=== PATIENT | female | born 1940 | race African-American/Black ===

== ENCOUNTER 2016-04-15 19:41 | Inpatient (IN) | payer MEDICARE, OTHER ==
[~2016-04-15] VITALS: Ht 172.7 cm; Wt 53.1 kg
[2016-04-15] MEDS ORDERED: ADVAIR 250-501 EACH INH (19:59)
[2016-04-15] MEDS ORDERED: VITAMIN D1000 UNI1 ORAL (19:59)
[2016-04-15] MEDS ORDERED: SPIRIVA18 MCG INH (19:59)
[2016-04-15] MEDS ORDERED: AMLODIPINE BESY10 MG ORAL (19:59)
[2016-04-15] MEDS ORDERED: ASPIRIN81 MG ORAL (19:59)
[2016-04-15] MEDS ORDERED: CALCIUM 500 +1 EAC2 PO (19:59)
[2016-04-15] MEDS ORDERED: LISINOPRIL10 MG ORAL (19:59)
[2016-04-15] MEDS ORDERED: Solu-MEDROL 125mg Inj IVP ONE (20:00)
[2016-04-15] MEDS ORDERED: Albuterol ud Inhalation HHN ONE (20:00)
[2016-04-15 20:28] LABS: BASOPHILS % (AUTO) 1.8 % (0.0-2.0); EOSINOPHILS % (AUTO) 5.6 % (0.0-3.0); LYMPHOCYTES % (AUTO) 22.2 % (20.0-45.0); MEAN CORPUSCULAR HEMOGLOBIN 27.7 PG (27.0-31.0); MEAN CORPUSCULAR HGB CONC 31.2 G/DL (32.0-36.0); MEAN CORPUSCULAR VOLUME 89 FL (80-99); MEAN PLATELET VOLUME 7.1 FL (6.5-10.1); MONOCYTES % (AUTO) 9.6 % (1.0-10.0); NEUTROPHILS % (AUTO) 60.8 % (45.0-75.0); PLATELET COUNT 182 K/UL (150-450); RED BLOOD COUNT 5.81 M/UL (4.20-5.40); RED CELL DISTRIBUTION WIDTH 13.3 % (11.6-14.8); WHITE BLOOD COUNT 5.4 K/UL (4.8-10.8)
[2016-04-15 20:37] VITALS: BP 174/100
[2016-04-15 20:38] LABS: ALANINE AMINOTRANSFERASE 26 U/L (3-33); ALBUMIN/GLOBULIN RATIO 1.1 (1.0-2.7); ASPARTATE AMINO TRANSFERASE 34 U/L (5-40); CALCIUM 9.7 mg/dL (8.6-10.2); CARBON DIOXIDE 29 mEQ/L (20-30); CREATININE 1.2 mg/dL (0.5-0.9); HEMOLYSIS 97; LIPASE 14 U/L (< 60); TOTAL PROTEIN 7.6 g/dL (6.6-8.7)
[2016-04-15 20:39] LABS: ANION GAP 15 (5-15); CHLORIDE 95 mEQ/L (98-107); POTASSIUM 4.3 mEQ/L (3.4-4.9); SODIUM 139 mEQ/L (135-145); TROPONIN I < 0.30 ng/mL (<=0.30)
[2016-04-15 20:49] LABS: CKMB 4.6 ng/mL (< 3.8)
[2016-04-15 20:50] LABS: PROTHROMBIN TIME 10.2 SEC (9.30-11.50)
[2016-04-15] MEDS ORDERED: Labetalol 5mg/ml 20ml vial IV PRN (21:45)
[2016-04-15] MEDS ORDERED: DuoNeb 0.5-3(2.5)mg/3ml neb HHN PRN (21:45)
[2016-04-15] MEDS ORDERED: LORazepam Inj 2mg/ml 1ml IV PRN (21:45)
[2016-04-15] MEDS ORDERED: Nitroglycerin Subl 0.4mg tab (Bottle Of 25) SL PRN (21:45)
[2016-04-15] MEDS ORDERED: Ketorolac 30mg Inj IV PRN (21:45)
[2016-04-15] MEDS ORDERED: Enalaprilat 2.5mg/2ml Inj IV PRN (21:45)
[2016-04-15] MEDS ORDERED: Piperacillin/Tazobactam 2.25 GM in D5W 55 ML IV SCH (22:00)
--- NOTE | 2016-04-15 22:50 | Emergency Room Report ---
History of Present Illness General Chief Complaint: Dyspnea/Respdistress Source: Patient, Family Member Present Illness HPI Patient presents with complaints of increased cough and congestion Ongoing for the past 3-4 days Patient denies any chest pain however feels increasingly short of breath Reports being told she had COPD before Denies any vomiting or diarrhea Questionable low-grade fever Denies any recent trauma or travel denies any calf pain or swelling Allergies: Coded Allergies: CODEINE (Verified Allergy, Unknown, 04/15/16) Patient History Past Medical History: see triage record Pertinent Family History: none Reviewed Nursing Documentation: PMH: Agreed, PSxH: Agreed Nursing Documentation-PMH Hx Hypertension: Yes Hx Asthma: Yes Review of Systems All Other Systems: negative except mentioned in HPI Physical Exam Vital Signs Date Time Temp Pulse Resp B/P Pulse Ox O2 Delivery O2 Flow Rate FiO2 04/15/16 19:37 97.3 103 18 205/100 93 Room Air Sp02 EP Interpretation: reviewed, normal General Appearance: mild distress - Appear short of breath Head: normocephalic, atraumatic Eyes: bilateral eye EOMI, bilateral eye PERRL ENT: hearing grossly normal, normal pharynx, TMs + canals normal, uvula midline Neck: full range of motion, supple, no meningismus, no bony tend Respiratory: no respiratory distress, no retraction, no accessory muscle use, crackles - diffusely Cardiovascular #1: normal peripheral pulses, regular rate, rhythm, no edema, no gallop, no JVD, no murmur Gastrointestinal: normal bowel sounds, non tender, soft, no mass, no organomegaly, non-distended, no guarding, no hernia, no pulsatile mass, no rebound Genitourinary: no CVA tenderness Musculoskeletal: normal inspection Neurologic: oriented x3, responsive, inter fold roll cutter III-XII nml as tested, motor strength/ tone normal, sensory intact Psychiatric: mood/affect normal Skin: normal color, no rash, warm/dry, palpation normal Lymphatic: normal inspection, no adenopathy Medical Decision Making Diagnostic Impression: Primary Impression: Dyspnea Additional Impression: Respiratory distress ER Course Patient is a fairly complex patient with multiple differential to consideration including but not limited to cardiac cardiopulmonary and vascular emergencies Patient's blood work is obtained Appears to have exacerbation of underlying medical condition Breathing treatments were provided Patient was also given steroids and admitted for further care Labs Test 04/15/16 20:00 White Blood Count 5.4 K/UL (4.8-10.8) Red Blood Count 5.81 M/UL (4.20-5.40) Hemoglobin 16.1 G/DL (12.0-16.0) Hematocrit 51.6 % (37.0-47.0) Mean Corpuscular Volume 89 FL (80-99) Mean Corpuscular Hemoglobin 27.7 PG (27.0-31.0) Mean Corpuscular Hemoglobin Concent 31.2 G/DL (32.0-36.0) Red Cell Distribution Width 13.3 % (11.6-14.8) Platelet Count 182 K/UL (150-450) Mean Platelet Volume 7.1 FL (6.5-10.1) Neutrophils (%) (Auto) 60.8 % (45.0-75.0) Lymphocytes (%) (Auto) 22.2 % (20.0-45.0) Monocytes (%) (Auto) 9.6 % (1.0-10.0) Eosinophils (%) (Auto) 5.6 % (0.0-3.0) Basophils (%) (Auto) 1.8 % (0.0-2.0) Prothrombin Time 10.2 SEC (9.30-11.50) Prothromb Time International Ratio 1.0 (0.9-1.1) Activated Partial Thromboplast Time 26 SEC (23-33) Sodium Level 139 mEQ/L (135-145) Potassium Level 4.3 mEQ/L (3.4-4.9) Chloride Level 95 mEQ/L (98-107) Carbon Dioxide Level 29 mEQ/L (20-30) Anion Gap 15 (5-15) Blood Urea Nitrogen 23 mg/dL (7-23) Creatinine 1.2 mg/dL (0.5-0.9) Estimat Glomerular Filtration Rate mL/min (>60) Glucose Level 148 mg/dL (74-106) Calcium Level 9.7 mg/dL (8.6-10.2) Total Bilirubin 0.3 mg/dL (0.0-1.2) Aspartate Amino Transf (AST/SGOT) 34 U/L (5-40) Alanine Aminotransferase (ALT/SGPT) 26 U/L (3-33) Alkaline Phosphatase 66 U/L (35-104) Total Creatine Kinase 161 U/L (26-140) Creatine Kinase MB 4.6 ng/mL (< 3.8) Creatine Kinase MB Relative Index 2.8 Troponin I < 0.30 ng/mL (<=0.30) Pro-B-Type Natriuretic Peptide 1990 pg/mL (0-450) Total Protein 7.6 g/dL (6.6-8.7) Albumin 4.1 g/dL (3.5-5.2) Globulin 3.5 g/dL Albumin/Globulin Ratio 1.1 (1.0-2.7) Lipase 14 U/L (< 60) Rhythm Strip Diag. Results EP Interpretation: yes Rate: 77 Rhythm: NSR, no PVC's, no ectopy Chest X-Ray Diagnostic Results EP Interpretation: Yes Findings: no consolidation, no effusion, no pneumothorax Number of Views: 1 Last Vital Signs Date Time Temp Pulse Resp B/P Pulse Ox O2 Delivery O2 Flow Rate FiO2 04/15/16 20:37 100 18 174/100 100 Room Air 04/15/16 19:37 97.3 Status: improved Disposition: ADMITTED INPATIENT Condition: Serious Referrals: [facility]REFERRED [facility],REFERRING (PCP) JED MOYA D.O. Apr 15, 2016 22:50
[2016-04-15 23:41] VITALS: BP 149/84
[2016-04-16] VITALS (7 sets, daily range): BP systolic 133–163; BP diastolic 63–89
[2016-04-16] MEDS: Solu-MEDROL 125mg Inj IV SCH ×5 (01:50→23:43)
[2016-04-16] MEDS ORDERED: Zosyn 3.375gm inj ONE (06:20)
[2016-04-16] MEDS: NovoLOG Insulin Flexpen SUBQ SCH ×4 (06:30→21:30)
[2016-04-16] MEDS: Zosyn 3.375gm q8h **Extended infusion IVPB SCH ×4 (06:50→13:08)
[2016-04-16] MEDS ORDERED: Heparin 5000 units/ml inj SUBQ SCH (09:00)
[2016-04-16] MEDS ORDERED: Theophylline ER 100mg ORAL SCH (09:00)
[2016-04-16] MEDS ORDERED: Lisinopril 20mg tab ORAL SCH (09:00)
--- NOTE | 2016-04-16 09:58 | Diagnostic Imaging Report ---
Indication: SOB Technique: One view of the chest Comparison: none Findings: The lungs are hyperinflated. Heart size is normal. The aorta is tortuous and calcified. Lungs and pleural space appear. Calcified granuloma is seen in the right midlung Impression: Hyperinflation consistent with COPD Evidence of old granulomatous disease No acute process
[2016-04-16] MEDS ORDERED: Pneumococcal Vaccine 25mcg/0.5ml IM ONE (10:00)
--- NOTE | 2016-04-16 13:43 | History and Physical ---
History of Present Illness General Date patient seen: Apr 16, 2016 Reason for Hospitalization: Dyspnea/Respdistress Present Illness HPI 75 year old female with hx of emphysema, 50 years of smoking, presented to ER with complaints of increased cough and congestion for the past 3-4 days. Patient denies any chest pain however feels increasingly short of breath She might have had fever, and productive cough as well. Allergies: Coded Allergies: CODEINE (Verified Allergy, Unknown, 04/15/16) Medication History Scheduled Amlodipine Besylate* (Amlodipine Besylate*), 10 MG ORAL DAILY, (Reported) Aspirin* (Aspirin*), 81 MG ORAL DAILY, (Reported) Cholecalciferol (Vitamin D3)* (Vitamin D*), 1,000 UNIT ORAL DAILY, (Reported) Fluticasone/Salmeterol (Advair 250-50 Diskus), 1 PUFF INH EVERY 12 HOURS, ( Reported) Lisinopril* (Lisinopril*), 10 MG ORAL DAILY, (Reported) Tiotropium Shubert* (Spiriva*), 1 PUFF INH DAILY, (Reported) Miscellaneous Medications Calcium Carbonate/Vitamin D3 (Calcium 500 + Vit D Caplet), 1 EACH PO, (Reported) Patient History Healthcare decision maker Resuscitation status Full Code Advanced Directive on File No Review of Systems Constitutional: Reports: malaise Respiratory: Reports: HOROWITZ, cough, sputum Physical Exam General Appearance: cachetic Lines, tubes and drains: peripheral, central line HEENT: normocephalic, atraumatic Neck: non-tender, normal alignment Respiratory/Chest: chest wall non-tender, lungs clear Cardiovascular/Chest: normal peripheral pulses, normal rate Abdomen: normal bowel sounds Last 24 Hour Vital Signs Date Time Temp Pulse Resp B/P Pulse Ox O2 Delivery O2 Flow Rate FiO2 04/16/16 11:27 97.5 84 18 163/89 100 Nasal Cannula 2.0 04/16/16 09:48 159/85 04/16/16 09:48 88 159/85 04/16/16 08:00 94 04/16/16 07:58 88 20 Nasal Cannula 2.0 28 04/16/16 07:57 99 Nasal Cannula 2.0 28 04/16/16 07:56 Nasal Cannula 2.0 28 04/16/16 07:48 97.5 88 18 159/85 100 Nasal Cannula 2.0 04/16/16 04:25 97.7 81 20 140/79 99 Nasal Cannula 2.0 04/16/16 04:04 76 04/16/16 01:25 97.5 101 20 157/85 100 Nasal Cannula 2.0 04/16/16 00:54 103 04/16/16 00:03 97.3 102 19 149/84 100 Nasal Cannula 5.0 04/15/16 23:41 97.3 102 19 149/84 100 Nasal Cannula 5.0 04/15/16 20:37 100 18 174/100 100 Room Air 04/15/16 20:30 96 22 Room Air 04/15/16 20:20 96 22 94 Room Air 04/15/16 20:18 105 20 94 Room Air 04/15/16 20:16 100 20 Room Air 04/15/16 19:37 97.3 103 18 205/100 93 Room Air Intake and Output 04/15/16 04/16/16 19:00 07:00 Intake Total 27.5 ml Balance 27.5 ml IV Total 27.5 ml # Voids 3 Laboratory Tests Test 04/15/16 20:00 White Blood Count 5.4 K/UL (4.8-10.8) Red Blood Count 5.81 M/UL (4.20-5.40) H Hemoglobin 16.1 G/DL (12.0-16.0) H Hematocrit 51.6 % (37.0-47.0) H Mean Corpuscular Volume 89 FL (80-99) Mean Corpuscular Hemoglobin 27.7 PG (27.0-31.0) Mean Corpuscular Hemoglobin Concent 31.2 G/DL (32.0-36.0) L Red Cell Distribution Width 13.3 % (11.6-14.8) Platelet Count 182 K/UL (150-450) Mean Platelet Volume 7.1 FL (6.5-10.1) Neutrophils (%) (Auto) 60.8 % (45.0-75.0) Lymphocytes (%) (Auto) 22.2 % (20.0-45.0) Monocytes (%) (Auto) 9.6 % (1.0-10.0) Eosinophils (%) (Auto) 5.6 % (0.0-3.0) H Basophils (%) (Auto) 1.8 % (0.0-2.0) Prothrombin Time 10.2 SEC (9.30-11.50) Prothromb Time International Ratio 1.0 (0.9-1.1) Activated Partial Thromboplast Time 26 SEC (23-33) Sodium Level 139 mEQ/L (135-145) Potassium Level 4.3 mEQ/L (3.4-4.9) Chloride Level 95 mEQ/L (98-107) L Carbon Dioxide Level 29 mEQ/L (20-30) Anion Gap 15 (5-15) Blood Urea Nitrogen 23 mg/dL (7-23) Creatinine 1.2 mg/dL (0.5-0.9) H Estimat Glomerular Filtration Rate mL/min (>60) Glucose Level 148 mg/dL (74-106) H Calcium Level 9.7 mg/dL (8.6-10.2) Total Bilirubin 0.3 mg/dL (0.0-1.2) Aspartate Amino Transf (AST/SGOT) 34 U/L (5-40) Alanine Aminotransferase (ALT/SGPT) 26 U/L (3-33) Alkaline Phosphatase 66 U/L (35-104) Total Creatine Kinase 161 U/L (26-140) H Creatine Kinase MB 4.6 ng/mL (< 3.8) H Creatine Kinase MB Relative Index 2.8 Troponin I < 0.30 ng/mL (<=0.30) Pro-B-Type Natriuretic Peptide 1990 pg/mL (0-450) H Total Protein 7.6 g/dL (6.6-8.7) Albumin 4.1 g/dL (3.5-5.2) Globulin 3.5 g/dL Albumin/Globulin Ratio 1.1 (1.0-2.7) Lipase 14 U/L (< 60) Height (Feet): 5 Height (Inches): 8.00 Weight (Pounds): 117 Medications Current Medications Medications (Trade) Dose Ordered Sig/Carol Route PRN Reason Start Time Stop Time Status Last Admin Dose Admin Albuterol/ Ipratropium (DuoNeb 0.5-3(2.5)mg/3ml) 3 ml EVERY 4 HOURS PRN HHN dyspnea 04/15/16 21:45 04/20/16 21:44 Amlodipine Besylate (Norvasc) 10 mg DAILY ORAL 04/16/16 09:00 05/16/16 08:59 04/16/16 09:48 Dextrose (Dextrose 50%) STAT PRN IV Hypoglycemia 04/15/16 21:45 05/15/16 21:44 Enalaprilat 2.5 mg 2.5 mg EVERY 4 HOURS PRN IV sbp more than 200 04/15/16 21:45 05/15/16 21:44 Heparin Sodium (Porcine) (Heparin 5000 units/ml) 5,000 units EVERY 12 HOURS SUBQ 04/16/16 09:00 05/16/16 08:59 04/16/16 09:00 Hydralazine HCl (Apresoline) 20 mg Q4H PRN IV sbp more than 160 04/15/16 21:45 05/15/16 21:44 Insulin Aspart (NovoLOG) BEFORE MEALS AND HS SUBQ 04/16/16 06:30 05/16/16 06:29 04/16/16 12:16 Ketorolac Tromethamine (Toradol 30mg) 30 mg EVERY 8 HOURS PRN IV moderate pain 4-6 04/15/16 21:45 04/20/16 21:44 Labetalol HCl (Normodyne) 20 mg EVERY HOUR PRN IV sbo more than 180 04/15/16 21:45 05/15/16 21:44 Lisinopril (Prinivil) 10 mg DAILY ORAL 04/16/16 09:00 05/16/16 08:59 04/16/16 09:48 Lorazepam (Ativan 2mg/ml 1ml) 0.5 mg Q4H PRN IV For Anxiety 04/15/16 21:45 04/22/16 21:44 Methylprednisolone Sodium Succinate (Solu-MEDROL) 60 mg EVERY 6 HOURS IV 04/16/16 00:00 05/16/16 00:00 04/16/16 12:34 Nitroglycerin (Ntg) 0.4 mg Q5M X 3 DOSES PRN SL Prn Chest Pain 04/15/16 21:45 05/15/16 21:44 Ondansetron HCl (Zofran) 4 mg Q6H PRN IVP Nausea & Vomiting 04/15/16 21:45 05/15/16 21:44 Piperacillin Sod/ Tazobactam Sod/ Dextrose (Zosyn/D5W) 110 ml @ 27.5 mls/hr EVERY 8 HOURS IVPB 04/15/16 23:45 04/20/16 23:44 04/16/16 13:08 Temazepam (Restoril) 15 mg HSPRN PRN ORAL Insomnia 04/15/16 21:45 04/22/16 21:44 Theophylline (Oral-Dur) 100 mg EVERY 12 HOURS ORAL 04/16/16 09:00 05/16/16 08:59 04/16/16 09:48 Assessment/Plan Problem List: (1) Acute respiratory failure ICD Codes: J96.00 - Acute respiratory failure, unspecified whether with hypoxia or hypercapnia SNOMED: 31153800 (2) Acute bronchitis ICD Codes: J20.9 - Acute bronchitis, unspecified SNOMED: 75666112 (3) Emphysema lung ICD Codes: J43.9 - Emphysema, unspecified SNOMED: 78437350 Assessment/Plan Iv steroids IV antibiotics check sputum pt/ot monitor bp titrate fio2 to sat of 92% STEFFANIE GARCIA Apr 16, 2016 13:43
[2016-04-16] MEDS ORDERED: Nitroglycerin Subl 0.4mg tab (Bottle Of 25) SL PRN (18:45)
[2016-04-16] MEDS ORDERED: Ketorolac 30mg Inj IV PRN (18:48)
[2016-04-16] MEDS ORDERED: Labetalol 5mg/ml 20ml vial IV PRN (19:00)
[2016-04-16] MEDS: DuoNeb 0.5-3(2.5)mg/3ml neb HHN PRN (20:29)
[2016-04-16] MEDS ORDERED: Enalaprilat 2.5mg/2ml Inj IV PRN (21:00)
[2016-04-16] MEDS: Theophylline ER 100mg ORAL SCH (21:24)
[2016-04-16] MEDS: Piperacillin/Tazobactam 3.375 GM in D5W 110 ML IVPB SCH (21:25)
[2016-04-16] MEDS: Heparin 5000 units/ml inj SUBQ SCH (21:31)
[2016-04-16] MEDS ORDERED: LORazepam Inj 2mg/ml 1ml IV PRN (21:45)
[2016-04-17 05:51] VITALS: BP 144/73
[2016-04-17] MEDS: Piperacillin/Tazobactam 3.375 GM in D5W 110 ML IVPB SCH ×3 (06:16→21:04)
[2016-04-17] MEDS: Solu-MEDROL 125mg Inj IV SCH ×2 (06:16→11:45)
[2016-04-17] MEDS: NovoLOG Insulin Flexpen SUBQ SCH ×4 (06:20→21:08)
[2016-04-17] MEDS: DuoNeb 0.5-3(2.5)mg/3ml neb HHN PRN ×2 (06:39→16:05)
[2016-04-17 06:59] LABS: MEAN CORPUSCULAR HEMOGLOBIN 28.2 PG (27.0-31.0); MEAN CORPUSCULAR HGB CONC 31.7 G/DL (32.0-36.0); MEAN CORPUSCULAR VOLUME 89 FL (80-99); MEAN PLATELET VOLUME 7.4 FL (6.5-10.1); PLATELET COUNT 173 K/UL (150-450); RED CELL DISTRIBUTION WIDTH 13.1 % (11.6-14.8); WHITE BLOOD COUNT 11.9 K/UL (4.8-10.8)
[2016-04-17 07:24] LABS: ALANINE AMINOTRANSFERASE 19 U/L (3-33); ALBUMIN/GLOBULIN RATIO 1.2 (1.0-2.7); ANION GAP 11 (5-15); ASPARTATE AMINO TRANSFERASE 20 U/L (5-40); CALCIUM 9.2 mg/dL (8.6-10.2); CARBON DIOXIDE 29 mEQ/L (20-30); CHLORIDE 101 mEQ/L (98-107); CREATININE 1.1 mg/dL (0.5-0.9); HEMOLYSIS 10; MAGNESIUM 1.8 mg/dL (1.7-2.5); PHOSPHORUS 3.9 mg/dL (2.5-4.8); POTASSIUM 4.8 mEQ/L (3.4-4.9); SODIUM 141 mEQ/L (135-145); TOTAL PROTEIN 6.4 g/dL (6.6-8.7)
[2016-04-17 08:39] VITALS: BP 126/66
[2016-04-17] MEDS: Heparin 5000 units/ml inj SUBQ SCH ×2 (08:39→21:09)
[2016-04-17] MEDS: Theophylline ER 100mg ORAL SCH ×2 (08:40→21:02)
[2016-04-17] MEDS: Lisinopril 10mg tab ORAL SCH (08:41)
[2016-04-17 11:43] LABS: BAND NEUTROPHILS % (MANUAL) 0 % (0-8); BASOPHILS % (MANUAL) 0 % (0-2); EOSINOPHILS % (MANUAL) 0 % (0-3); LYMPHOCYTES % (MANUAL) 7 % (20-45); NEUTROPHILS % (MANUAL) 92 % (45-75); PLATELET ESTIMATE ADEQUATE; PLATELET MORPHOLOGY NORMAL; TOTAL CELLS COUNTED 100
[2016-04-17 11:44] LABS: HYPOCHROMASIA 1+
[2016-04-17 11:58] VITALS: BP 139/76
[2016-04-17 16:00] VITALS: BP 139/75
--- NOTE | 2016-04-17 16:08 | Pulmonology Progress Note ---
Assessment/Plan Problems: (1) Acute respiratory failure (2) Acute bronchitis (3) Emphysema lung Assessment/Plan CT of chest to rule out bullous disease decrease steroids check sputum titrate fio2 to sat of 92% Subjective ROS Limited/Unobtainable: No Interval Events: slightly better Constitutional: Reports: no symptoms HEENT: Repors: no symptoms Allergies: Coded Allergies: CODEINE (Verified Allergy, Unknown, 04/15/16) Objective Last 24 Hour Vital Signs Date Time Temp Pulse Resp B/P Pulse Ox O2 Delivery O2 Flow Rate FiO2 04/17/16 16:05 84 18 96 Nasal Cannula 2.0 28 04/17/16 16:00 97.9 20 139/75 97 Room Air 04/17/16 11:58 97.5 74 20 139/76 96 Nasal Cannula 2.0 04/17/16 08:41 81 126/66 04/17/16 08:41 126/66 04/17/16 08:39 97.2 81 20 126/66 96 Nasal Cannula 2.0 04/17/16 06:49 75 18 97 Nasal Cannula 2.0 28 04/17/16 06:39 71 18 97 Nasal Cannula 2.0 28 04/17/16 06:39 97 Nasal Cannula 2.0 28 04/17/16 06:39 Nasal Cannula 2.0 28 04/17/16 06:39 71 18 Nasal Cannula 2.0 28 04/17/16 05:51 98.7 77 20 144/73 100 Room Air 04/16/16 23:55 97.9 69 20 143/63 98 Nasal Cannula 2.0 04/16/16 21:28 88 20 Nasal Cannula 2.0 28 04/16/16 20:30 Nasal Cannula 2.0 28 04/16/16 20:30 97 Nasal Cannula 2.0 28 04/16/16 19:00 97.9 80 20 133/73 98 Room Air 04/16/16 16:49 82 20 94 Room Air 04/16/16 16:39 82 20 94 Room Air 04/16/16 16:39 82 20 Nasal Cannula 2.0 28 04/16/16 16:24 97.5 Intake and Output 04/16/16 04/17/16 19:00 07:00 Intake Total 590.0 ml 27.5 ml Balance 590.0 ml 27.5 ml Intake Oral 480 ml IV Total 110.0 ml 27.5 ml # Voids 3 4 # Bowel Movements 1 General Appearance: cachetic HEENT: normocephalic, atraumatic Respiratory/Chest: chest wall non-tender, lungs clear Breasts: no masses Cardiovascular: normal peripheral pulses Abdomen: normal bowel sounds, no organomegaly Extremities: no cyanosis Skin: no rash Microbiology Date/Time Source Procedure Growth Status 04/15/16 20:52 Blood Blood Culture - Preliminary NO GROWTH AFTER 24 HOURS Resulted 04/15/16 20:00 Blood Blood Culture - Preliminary NO GROWTH AFTER 24 HOURS Resulted Laboratory Tests 04/17/16 05:55: White Blood Count 11.9#H, Red Blood Count 4.70, Hemoglobin 13.2, Hematocrit 41.7 , Mean Corpuscular Volume 89, Mean Corpuscular Hemoglobin 28.2, Mean Corpuscular Hemoglobin Concent 31.7L, Red Cell Distribution Width 13.1, Platelet Count 173, Mean Platelet Volume 7.4, Neutrophils (%) (Auto) , Lymphocytes (%) (Auto) , Monocytes (%) (Auto) , Eosinophils (%) (Auto) , Basophils (%) (Auto) , Differential Total Cells Counted 100, Neutrophils % ( Manual) 92H, Lymphocytes % (Manual) 7L, Monocytes % (Manual) 1, Eosinophils % ( Manual) 0, Basophils % (Manual) 0, Band Neutrophils 0, Platelet Estimate Adequate, Platelet Morphology Normal, Hypochromasia 1+, Sodium Level 141, Potassium Level 4.8, Chloride Level 101, Carbon Dioxide Level 29, Anion Gap 11, Blood Urea Nitrogen 25H, Creatinine 1.1H, Estimat Glomerular Filtration Rate , Glucose Level 171H, Calcium Level 9.2, Phosphorus Level 3.9, Magnesium Level 1.8 , Total Bilirubin 0.2, Aspartate Amino Transf (AST/SGOT) 20, Alanine Aminotransferase (ALT/SGPT) 19, Alkaline Phosphatase 54, Total Protein 6.4L, Albumin 3.6, Globulin 2.8, Albumin/Globulin Ratio 1.2 Current Medications Medications (Trade) Dose Ordered Sig/Carol Route PRN Reason Start Time Stop Time Status Last Admin Dose Admin Acetaminophen (Tylenol) 650 mg Q4H PRN ORAL Mild Pain/Temp > 100.5 04/16/16 22:15 05/16/16 22:14 Albuterol/ Ipratropium (DuoNeb 0.5-3(2.5)mg/3ml) 3 ml EVERY 4 HOURS PRN HHN dyspnea 04/16/16 21:00 04/21/16 20:59 04/17/16 16:05 Amlodipine Besylate (Norvasc) 10 mg DAILY ORAL 04/17/16 09:00 05/17/16 08:59 04/17/16 08:41 Dextrose (Dextrose 50%) STAT PRN IV Hypoglycemia 04/16/16 21:45 05/16/16 21:44 Heparin Sodium (Porcine) (Heparin 5000 units/ml) 5,000 units EVERY 12 HOURS SUBQ 04/16/16 21:00 05/16/16 20:59 04/17/16 08:39 Insulin Aspart (NovoLOG) BEFORE MEALS AND HS SUBQ 04/16/16 21:00 05/16/16 20:59 04/17/16 11:47 Ketorolac Tromethamine (Toradol 30mg) 30 mg EVERY 8 HOURS PRN IV moderate pain 4-6 04/16/16 18:48 04/21/16 18:47 Lisinopril (Zestril) 10 mg DAILY ORAL 04/17/16 09:00 05/17/16 08:59 04/17/16 08:41 Lorazepam (Ativan 2mg/ml 1ml) 0.5 mg Q4H PRN IV For Anxiety 04/16/16 21:45 04/23/16 21:44 Methylprednisolone Sodium Succinate (Solu-MEDROL) 60 mg EVERY 6 HOURS IV 04/17/16 00:00 05/17/16 00:00 04/17/16 11:45 Nitroglycerin (Ntg) 0.4 mg Q5M X 3 DOSES PRN SL Prn Chest Pain 04/16/16 18:45 05/16/16 18:44 Ondansetron HCl (Zofran) 4 mg Q6H PRN IVP Nausea & Vomiting 04/16/16 21:45 05/16/16 21:44 Piperacillin Sod/ Tazobactam Sod/ Dextrose (Zosyn/D5W) 110 ml @ 27.5 mls/hr EVERY 8 HOURS IVPB 04/16/16 22:00 04/20/16 21:59 04/17/16 13:19 Temazepam (Restoril) 15 mg HSPRN PRN ORAL Insomnia 04/16/16 21:45 04/23/16 21:44 Theophylline (Oral-Dur) 100 mg EVERY 12 HOURS ORAL 04/16/16 21:00 05/16/16 20:59 04/17/16 08:40 STEFFANIE GARCIA Apr 17, 2016 16:08
[2016-04-17 19:00] VITALS: BP 121/51
[2016-04-18] VITALS: BP 134/71
[2016-04-18 04:00] VITALS: BP 145/75
[2016-04-18] MEDS: DuoNeb 0.5-3(2.5)mg/3ml neb HHN PRN (05:04)
[2016-04-18 05:58] LABS: MEAN CORPUSCULAR HEMOGLOBIN 28.6 PG (27.0-31.0); MEAN CORPUSCULAR VOLUME 89 FL (80-99); MEAN PLATELET VOLUME 7.3 FL (6.5-10.1); PLATELET COUNT 199 K/UL (150-450); RED BLOOD COUNT 4.94 M/UL (4.20-5.40); RED CELL DISTRIBUTION WIDTH 13.3 % (11.6-14.8); WHITE BLOOD COUNT 15.6 K/UL (4.8-10.8)
[2016-04-18 06:14] LABS: ALANINE AMINOTRANSFERASE 24 U/L (3-33); ALBUMIN/GLOBULIN RATIO 1.3 (1.0-2.7); ANION GAP 11 (5-15); ASPARTATE AMINO TRANSFERASE 23 U/L (5-40); CALCIUM 9.5 mg/dL (8.6-10.2); CARBON DIOXIDE 28 mEQ/L (20-30); CHLORIDE 101 mEQ/L (98-107); CREATININE 1.3 mg/dL (0.5-0.9); HEMOLYSIS 3; MAGNESIUM 1.9 mg/dL (1.7-2.5); POTASSIUM 4.3 mEQ/L (3.4-4.9); SODIUM 140 mEQ/L (135-145); TOTAL PROTEIN 6.5 g/dL (6.6-8.7)
[2016-04-18] MEDS: NovoLOG Insulin Flexpen SUBQ SCH ×4 (06:30→21:07)
[2016-04-18] MEDS: Piperacillin/Tazobactam 3.375 GM in D5W 110 ML IVPB SCH ×3 (06:35→21:04)
[2016-04-18 08:17] VITALS: BP 145/73
[2016-04-18] MEDS: Theophylline ER 100mg ORAL SCH ×2 (08:54→21:03)
[2016-04-18] MEDS: Lisinopril 10mg tab ORAL SCH (08:54)
[2016-04-18] MEDS: Heparin 5000 units/ml inj SUBQ SCH ×2 (09:00→21:08)
--- NOTE | 2016-04-18 09:25 | Diagnostic Imaging Report ---
Clinical Indication: DYSPNEA Technique: Spiral acquisition obtained through the chest. No IV contrast utilized, per high resolution protocol. Axial 5 x 5 mm slices were reconstructed. Axial 1 mm thick slices were reconstructed using high resolution algorithm at 10 mm intervals. Multiplanar reconstructions generated. Total dose length product 508 mGycm. CTDIvol(s) 13 mGy Comparison: None Findings: The lungs are hyperinflated. This is most striking in the upper lobes. There is some compressive atelectasis in the posterior left lung base and in the posterior right midlung. There is a calcified nodule in the right lower lobe. There are also granulomatous lymph node calcifications in the right pulmonary hilum. No infiltrates, effusions, noncalcified nodules, or masses demonstrated. On the high-resolution slices, no generalized interstitial septal thickening, nodularity, bronchiectasis, or groundglass opacity demonstrated. The heart size is normal. No pericardial effusion. No mediastinal or hilar mass or adenopathy. The thyroid is enlarged, slightly heterogeneous, but no discrete mass is evident. There are considerable coronary artery calcifications. No axillary or chest wall mass or adenopathy. The bones are unremarkable. Impression: Hyperinflation, compatible with COPD Generalized interstitial disease is not demonstrated Evidence of old granulomatous disease in the right lung pulmonary hilum Nonspecific prominence of the thyroid, without discrete mass, incompletely visualized Coronary artery calcification The CT scanner at [facility] is accredited by the [employer] and the scans are performed using protocols designed to limit radiation exposure to as low as reasonably achievable to attain images of sufficient resolution adequate for diagnostic evaluation.
[2016-04-18] MEDS: Solu-MEDROL 125mg Inj IV SCH (09:47)
[2016-04-18 12:15] VITALS: BP 147/77
--- NOTE | 2016-04-18 15:18 | Cardiology Report ---
APPROVED REPORT EKG Measurement Heart [id number] ID [id number] Normal sinus rhythm Left axis deviation Pulmonary disease pattern Right bundle branch block Abnormal ECG
[2016-04-18 16:00] VITALS: BP 139/82
--- NOTE | 2016-04-18 16:13 | Pulmonology Progress Note ---
Assessment/Plan Problems: (1) Acute respiratory failure (2) Acute bronchitis (3) Emphysema lung Assessment/Plan CT of chest showing Impression: Hyperinflation, compatible with COPD decrease steroids check sputum titrate fio2 to sat of 92% probably dc home in am Subjective ROS Limited/Unobtainable: No Interval Events: feeling better, less short of breath Allergies: Coded Allergies: CODEINE (Verified Allergy, Unknown, 04/15/16) Objective Last 24 Hour Vital Signs Date Time Temp Pulse Resp B/P Pulse Ox O2 Delivery O2 Flow Rate FiO2 04/18/16 12:15 97.6 79 20 147/77 95 Nasal Cannula 2.0 04/18/16 09:00 73 145/73 04/18/16 08:54 145/73 04/18/16 08:17 97.7 73 20 145/73 94 Nasal Cannula 2.0 04/18/16 07:40 Nasal Cannula 2.0 28 04/18/16 07:40 99 Nasal Cannula 2.0 28 04/18/16 07:39 76 20 Nasal Cannula 2.0 28 04/18/16 05:12 81 20 98 Room Air 04/18/16 05:05 77 20 93 Room Air 04/18/16 04:00 97.5 77 18 145/75 93 Room Air 04/18/16 00:00 98.1 71 18 134/71 100 Nasal Cannula 2.0 04/17/16 19:35 97 Room Air 04/17/16 19:35 Room Air 04/17/16 19:30 97 20 Room Air 04/17/16 19:00 97.9 97 20 121/51 97 Room Air 04/17/16 16:13 83 18 97 Nasal Cannula 2.0 28 Intake and Output 04/17/16 04/18/16 19:00 07:00 Intake Total 780.0 ml 830.0 ml Balance 780.0 ml 830.0 ml Intake Oral 560 ml 720 ml IV Total 220.0 ml 110.0 ml # Voids 3 5 # Bowel Movements 1 General Appearance: WD/WN HEENT: normocephalic Respiratory/Chest: chest wall non-tender, normal breath sounds Cardiovascular: normal peripheral pulses, normal rate Abdomen: normal bowel sounds, soft, non tender Genitourinary: normal external genitalia Extremities: no cyanosis Neurologic/Psychiatric: healthcare facility administrator II-XII grossly normal, no motor/sensory deficits Microbiology Date/Time Source Procedure Growth Status 04/15/16 20:52 Blood Blood Culture - Preliminary NO GROWTH AFTER 48 HOURS Resulted 04/15/16 20:00 Blood Blood Culture - Preliminary NO GROWTH AFTER 48 HOURS Resulted Laboratory Tests 04/18/16 04:15: White Blood Count 15.6H, Red Blood Count 4.94, Hemoglobin 14.1, Hematocrit 44.1 , Mean Corpuscular Volume 89, Mean Corpuscular Hemoglobin 28.6, Mean Corpuscular Hemoglobin Concent 32.0, Red Cell Distribution Width 13.3, Platelet Count 199, Mean Platelet Volume 7.3, Neutrophils (%) (Auto) , Lymphocytes (%) ( Auto) , Monocytes (%) (Auto) , Eosinophils (%) (Auto) , Basophils (%) (Auto) , Sodium Level 140, Potassium Level 4.3, Chloride Level 101, Carbon Dioxide Level 28, Anion Gap 11, Blood Urea Nitrogen 30H, Creatinine 1.3H, Estimat Glomerular Filtration Rate , Glucose Level 115H, Calcium Level 9.5, Phosphorus Level 4.0, Magnesium Level 1.9, Total Bilirubin 0.2, Aspartate Amino Transf (AST/SGOT) 23, Alanine Aminotransferase (ALT/SGPT) 24, Alkaline Phosphatase 71, Total Protein 6.5L, Albumin 3.7, Globulin 2.8, Albumin/Globulin Ratio 1.3 Current Medications Medications (Trade) Dose Ordered Sig/Carol Route PRN Reason Start Time Stop Time Status Last Admin Dose Admin Acetaminophen (Tylenol) 650 mg Q4H PRN ORAL Mild Pain/Temp > 100.5 04/16/16 22:15 05/16/16 22:14 Albuterol/ Ipratropium (DuoNeb 0.5-3(2.5)mg/3ml) 3 ml EVERY 4 HOURS PRN HHN dyspnea 04/16/16 21:00 04/21/16 20:59 04/18/16 05:04 Amlodipine Besylate (Norvasc) 10 mg DAILY ORAL 04/17/16 09:00 05/17/16 08:59 04/18/16 09:00 Dextrose (Dextrose 50%) STAT PRN IV Hypoglycemia 04/16/16 21:45 05/16/16 21:44 Heparin Sodium (Porcine) (Heparin 5000 units/ml) 5,000 units EVERY 12 HOURS SUBQ 04/16/16 21:00 3/23/17 20:59 04/18/16 09:00 Insulin Aspart (NovoLOG) BEFORE MEALS AND HS SUBQ 04/16/16 21:00 05/16/16 20:59 04/17/16 21:08 Ketorolac Tromethamine (Toradol 30mg) 30 mg EVERY 8 HOURS PRN IV moderate pain 4-6 04/16/16 18:48 04/21/16 18:47 Lisinopril (Zestril) 10 mg DAILY ORAL 04/17/16 09:00 05/17/16 08:59 04/18/16 08:54 Lorazepam (Ativan 2mg/ml 1ml) 0.5 mg Q4H PRN IV For Anxiety 04/16/16 21:45 04/23/16 21:44 Methylprednisolone Sodium Succinate (Solu-MEDROL) 60 mg DAILY IV 04/18/16 09:00 05/18/16 08:59 04/18/16 09:47 Nitroglycerin (Ntg) 0.4 mg Q5M X 3 DOSES PRN SL Prn Chest Pain 04/16/16 18:45 05/16/16 18:44 Ondansetron HCl (Zofran) 4 mg Q6H PRN IVP Nausea & Vomiting 04/16/16 21:45 05/16/16 21:44 Piperacillin Sod/ Tazobactam Sod/ Dextrose (Zosyn/D5W) 110 ml @ 27.5 mls/hr EVERY 8 HOURS IVPB 04/16/16 22:00 04/20/16 21:59 04/18/16 14:47 Temazepam (Restoril) 15 mg HSPRN PRN ORAL Insomnia 04/16/16 21:45 04/23/16 21:44 Theophylline (Oral-Dur) 100 mg EVERY 12 HOURS ORAL 04/16/16 21:00 05/16/16 20:59 04/18/16 08:54 STEFFANIE GARCIA Apr 18, 2016 16:13
[2016-04-18 19:00] VITALS: BP 152/82
[2016-04-19] VITALS: BP 162/97
[2016-04-19 04:00] VITALS: BP 149/85
[2016-04-19] MEDS: NovoLOG Insulin Flexpen SUBQ SCH ×2 (06:30→11:46)
[2016-04-19] MEDS: Piperacillin/Tazobactam 3.375 GM in D5W 110 ML IVPB SCH (06:53)
[2016-04-19 07:57] VITALS: BP 141/78
[2016-04-19] MEDS: Theophylline ER 100mg ORAL SCH (08:58)
[2016-04-19] MEDS: Lisinopril 10mg tab ORAL SCH (08:58)
[2016-04-19] MEDS: Heparin 5000 units/ml inj SUBQ SCH (09:00)
[2016-04-19] MEDS: Solu-MEDROL 125mg Inj IV SCH (09:03)
--- NOTE | 2016-04-19 11:13 | Pulmonology Progress Note ---
Assessment/Plan Problems: (1) Acute respiratory failure (2) Acute bronchitis (3) Emphysema lung Assessment/Plan CT of chest showing Impression: Hyperinflation, compatible with COPD decrease steroids check sputum titrate fio2 to sat of 92% probably dc home in am Subjective ROS Limited/Unobtainable: No Respiratory: Reports: dyspnea at rest, shortness of breath, sputum Allergies: Coded Allergies: CODEINE (Verified Allergy, Unknown, 04/15/16) Objective Last 24 Hour Vital Signs Date Time Temp Pulse Resp B/P Pulse Ox O2 Delivery O2 Flow Rate FiO2 04/19/16 08:58 92 141/78 04/19/16 08:58 141/78 04/19/16 08:17 77 18 Nasal Cannula 2.0 04/19/16 08:16 98 Nasal Cannula 2.0 04/19/16 08:15 Nasal Cannula 2.0 04/19/16 07:57 98.2 92 21 141/78 93 Room Air 04/19/16 04:00 98.2 79 20 149/85 97 Nasal Cannula 2.0 04/19/16 00:00 97.9 86 20 162/97 96 Nasal Cannula 2.0 04/18/16 19:54 88 20 Nasal Cannula 2.0 28 04/18/16 19:54 97 Nasal Cannula 2.0 28 04/18/16 19:54 Nasal Cannula 2.0 28 04/18/16 19:00 96.6 77 18 152/82 97 Nasal Cannula 2.0 04/18/16 16:00 97.0 78 22 139/82 98 Room Air 04/18/16 12:15 97.6 79 20 147/77 95 Nasal Cannula 2.0 Intake and Output 04/18/16 04/19/16 19:00 07:00 Intake Total 830.0 ml 590.0 ml Balance 830.0 ml 590.0 ml Intake Oral 720 ml 480 ml IV Total 110.0 ml 110.0 ml # Voids 2 7 # Bowel Movements 3 1 General Appearance: no acute distress HEENT: normocephalic, atraumatic, PERRL Respiratory/Chest: chest wall non-tender, decreased breath sounds, accessory muscle use, rhonchi Cardiovascular: normal peripheral pulses, normal rate, regular rhythm, no JVD Abdomen: normal bowel sounds, soft, non tender, no organomegaly, no mass Genitourinary: normal external genitalia Skin: no lesions Neurologic/Psychiatric: youth agent II-XII grossly normal, no motor/sensory deficits Current Medications Medications (Trade) Dose Ordered Sig/Carol Route PRN Reason Start Time Stop Time Status Last Admin Dose Admin Acetaminophen (Tylenol) 650 mg Q4H PRN ORAL Mild Pain/Temp > 100.5 04/16/16 22:15 05/16/16 22:14 Albuterol/ Ipratropium (DuoNeb 0.5-3(2.5)mg/3ml) 3 ml EVERY 4 HOURS PRN HHN dyspnea 04/16/16 21:00 04/21/16 20:59 04/18/16 05:04 Amlodipine Besylate (Norvasc) 10 mg DAILY ORAL 04/17/16 09:00 05/17/16 08:59 04/19/16 08:58 Dextrose (Dextrose 50%) STAT PRN IV Hypoglycemia 04/16/16 21:45 05/16/16 21:44 Heparin Sodium (Porcine) (Heparin 5000 units/ml) 5,000 units EVERY 12 HOURS SUBQ 04/16/16 21:00 05/16/16 20:59 04/19/16 09:00 Insulin Aspart (NovoLOG) BEFORE MEALS AND HS SUBQ 04/16/16 21:00 05/16/16 20:59 04/18/16 21:07 Ketorolac Tromethamine (Toradol 30mg) 30 mg EVERY 8 HOURS PRN IV moderate pain 4-6 04/16/16 18:48 04/21/16 18:47 Lisinopril (Zestril) 10 mg DAILY ORAL 04/17/16 09:00 05/17/16 08:59 04/19/16 08:58 Lorazepam (Ativan 2mg/ml 1ml) 0.5 mg Q4H PRN IV For Anxiety 04/16/16 21:45 04/23/16 21:44 Methylprednisolone Sodium Succinate (Solu-MEDROL) 60 mg DAILY IV 04/18/16 09:00 05/18/16 08:59 04/19/16 09:03 Nitroglycerin (Ntg) 0.4 mg Q5M X 3 DOSES PRN SL Prn Chest Pain 04/16/16 18:45 05/16/16 18:44 Ondansetron HCl (Zofran) 4 mg Q6H PRN IVP Nausea & Vomiting 04/16/16 21:45 05/16/16 21:44 Piperacillin Sod/ Tazobactam Sod/ Dextrose (Zosyn/D5W) 110 ml @ 27.5 mls/hr EVERY 8 HOURS IVPB 04/16/16 22:00 04/20/16 21:59 04/19/16 06:53 Temazepam (Restoril) 15 mg HSPRN PRN ORAL Insomnia 04/16/16 21:45 04/23/16 21:44 Theophylline (Oral-Dur) 100 mg EVERY 12 HOURS ORAL 04/16/16 21:00 05/16/16 20:59 04/19/16 08:58 STEFFANIE GARCIA Apr 19, 2016 11:13
[2016-04-19 11:54] VITALS: BP 149/99
[2016-04-19] MEDS ORDERED: NS 275ml ONE ×2 (14:02→14:21)
[2016-04-19] MEDS ORDERED: Tubing IV Secondary IV ONE ×2 (14:02→14:21)
--- NOTE | 2016-04-22 08:23 | Discharge Summary ---
Discharge Summary Hospital Course Date of Admission Apr 15, 2016 at 21:15 Date of Discharge Apr 19, 2016 at 14:22 Admitting Diagnosis dyspnea HPI Luh Roberts is a 75 year old female who was admitted on Apr 15, 2016 at 21:15 for Dyspnea Hospital Course dc summary #[id number] Discharge Medications New Medications: Fluticasone/Salmeterol (Advair 250-50 Diskus) 1 Each Blst.w.dev 1 PUFF INH EVERY 12 HOURS, #1 EA Levofloxacin* (Levaquin*) 500 Mg Tablet 500 MG ORAL DAILY for 3 Days, TAB Methylprednisolone* (Medrol*) 4 Mg Tablet 4 MG ORAL DAILY, #10 TAB 0 Refills Continued Medications: Amlodipine Besylate* (Amlodipine Besylate*) 10 Mg Tablet 10 MG ORAL DAILY, TAB Aspirin* (Aspirin*) 81 Mg Tab.chew 81 MG ORAL DAILY, TAB Cholecalciferol (Vitamin D3)* (Vitamin D*) 1,000 Unit Tablet 1000 UNIT ORAL DAILY, #30 TAB Lisinopril* (Lisinopril*) 10 Mg Tablet 10 MG ORAL DAILY, TAB Tiotropium [place]* (Spiriva*) 18 Mcg Cap.w.dev 1 PUFF INH DAILY, EA Discharge Condition Upon Discharge: improving, stable Discharge Disposition Patient was discharged to Home () Discharge Diagnoses: Discharge Instructions Discharge Instructions Special Instructions I have been assigned to complete a D/C Summary on this account. I was not involved in the patient management Georgina Castaneda NP ([place]) Apr 22, 2016 08:23
--- NOTE | 2016-04-22 22:18 | Discharge Summary ---
DATE OF ADMISSION: 04/15/2016 DATE OF DISCHARGE: 04/19/2016 REASON FOR ADMISSION: 75-year-old female with a history of smoking for 50 years and emphysema, presented to emergency room with complaints of increased cough and congestion for the last 3 to 4 days. The patient denied chest pain, but felt increasingly short of breath and chest tightness. She had a productive cough. Subjective fever. No chills. Occasional wheezing. No hemoptysis. Workup in the emergency room revealed no leukocytosis, negative troponin, chest x-ray was consistent with hyperinflation of the lungs, compatible with COPD. Patient was placed on supplemental oxygen, nebulizing treatment provided, started on steroids. The patient was admitted for further management. ADMITTING DIAGNOSES: 1. Acute respiratory failure. 2. Chronic obstructive pulmonary disease/acute chronic obstructive pulmonary disease exacerbation. 3. Emphysema with acute bronchitis. HOSPITAL STAY: The patient admitted to the hospital. The patient was given supplemental oxygen. The patient was started on IV steroids, which were gradually tapered and changed to oral upon discharge. Empiric antibiotics provided. Blood culture negative. Sputum culture negative. CT of the chest revealed hyperinflation of the lungs consistent with COPD. No evidence of mass. Antitussive provided as needed. The patient was working with physical and occupational therapists. The patient was encouraged to continue abstinence from smoking. Blood pressure was controlled with calcium channel ofe and MIGNON inhibitor, stable. DISCHARGE DIAGNOSES: 1. Acute respiratory failure, resolved. 2. Acute chronic obstructive pulmonary disease exacerbation, improved. 3. Emphysema with acute bronchitis . 4. History of smoking. 5. Hypertension. DISCHARGE MEDICATIONS: See medication reconciliation list. DISCHARGE INSTRUCTIONS: The patient discharged home ; follow up with the primary medical doctor. Reinforce compliance with the inhalers. Mela Huffman M.D. Georgina GeigerMontefiore Nyack HospitalCatarino N.PSusana DR: Kavon JOB#: [id number] CC: [email or web address]
== END 2016-04-19 14:22 | disposition home or self-care (01) | DRG 189 ==
LOC: EDBD 19:41 → EMR 19:53 → 2E 21:15 → EDBEDREQ 21:23 → 4E 04-16 18:24
DX: J96.00 Acute respiratory failure, unspecified whether with hypoxia or hypercapnia (principal); J44.0 Chronic obstructive pulmonary disease with (acute) lower respiratory infection; J44.1 Chronic obstructive pulmonary disease with (acute) exacerbation; J20.9 Acute bronchitis, unspecified; I10 Essential (primary) hypertension; Z23 Encounter for immunization
CPT/HCPCS: 36415; 71010; 71250; 80053; 82550; 82553; 82962; 83690; 83735; 83880; 84100; 84484; 85007; 85025; 85610; 85730; 87040; 87070; 87205; 90732; 93005; 94640; 94664; 94760; J1815; J7620